=== PATIENT | male | born 1960 | race American Indian/Alaskan Native ===

== ENCOUNTER 2017-01-02 05:45 | Emergency (ER) | payer MEDICAID ==
[2017-01-02 06:17] LABS: Basophils % (Auto) 0.4 % (0.0-1.8); Eosinophils % (Auto) 1.2 % (0.0-4.3); Hematocrit 48.7 % (35.5-45.6); Hemoglobin 15.7 gm/dl (11.8-15.2); Mean Corpuscular HGB Conc 32 % (32-34); Mean Corpuscular Hemoglobin 28 pg (28-32); Mean Corpuscular Volume 85 fl (84-94); Platelet Count 282 K/mm3 (140-440); Red Blood Count 5.73 M/mm3 (3.65-5.03); Red Cell Distribution Width 13.9 % (13.2-15.2); White Blood Count 8.2 K/mm3 (4.5-11.0)
[2017-01-02 06:38] LABS: Alanine Aminotransferase 26 units/L (7-56); Albumin 4.4 g/dL (3.9-5); Alkaline Phosphatase 73 units/L (35-129); Anion Gap 17 mmol/L; BUN/Creatinine Ratio 13.33; Bilirubin,Total 0.9 mg/dL (0.1-1.2); Blood Urea Nitrogen 12 mg/dL (9-20); Calcium 9.3 mg/dL (8.4-10.2); Carbon Dioxide 28 mmol/L (22-30); Chloride 98.7 mmol/L (98-107); Glucose 134 mg/dL (75-100); Lipase 18 units/L (13-60); Potassium 4.2 mmol/L (3.6-5.0); Sodium 139 mmol/L (137-145); Total Protein 8.6 g/dL (6.3-8.2)
[2017-01-02 08:22] LABS: Mucus,Urine FEW /HPF; WBC,Urine < 1.0 /HPF (0.0-6.0)
[2017-01-02 08:26] LABS: Bilirubin,Urine NEG (Negative); Blood,Urine NEG (Negative); Ketones,Urine NEG (Negative); Leukocyte Esterase,Urine NEG (Negative); Nitrite,Urine NEG (Negative); Protein,Urine <15 mg/dL mg/dL (Negative); Urobilinogen,Urine < 2.0 mg/dL (<2.0)
--- NOTE | 2017-01-02 09:46 | Emergency Department Report ---
ED Abdominal Pain HPI - General Chief Complaint: Abdominal Pain Stated Complaint: STOMACH PAIN Time Seen by Provider: 01/02/17 09:42 Source: patient Mode of arrival: Ambulatory Limitations: No Limitations - History of Present Illness Initial Comments: Patient complains of a vague periumbilical and abdominal pain which she states he's been having for months if not years. He states that it is typically worse after eating but he does not vomit. Pain does not radiate. At this time he is not complaining of any pain. However, he would like to know what is causing this pain syndrome. He does have a history of schizophrenia and line with his Zyprexa. He denies any recent fever of or chills. It does not really appear that his pain is acutely exacerbated in any way. In fact, at this time he is asymptomatic. MD Complaint: abdominal pain -: month(s) Location: periumbilical, epigastric Radiation: none Migration to: no migration Severity: moderate Quality: cramping Consistency: intermittent Improves With: nothing Worsens With: nothing Associated Symptoms: denies other symptoms - Related Data Previous Rx's Medication Instructions Recorded Last Taken Type Cyclobenzaprine [Flexeril] 10 mg PO TID PRN #20 tablet 12/14/13 Unknown Rx Ibuprofen [Motrin] 800 mg PO TID PRN #20 tablet 12/14/13 Unknown Rx Albuterol Sulfate [Ventolin HFA] 2 puff IH Q4H PRN #1 hfa.aer.ad 09/27/14 Unknown Rx Azithromycin [Zithromax Z-PAGE] 250 mg PO DAILY #6 tablet 09/27/14 Unknown Rx Promethazine /Codeine 5 ml PO Q6H PRN #120 ml 09/27/14 Unknown Rx [Phenergan/Codeine 6.25-10 mg/5 ml] predniSONE [Deltasone] 20 mg PO TID #15 tab 09/27/14 Unknown Rx Olanzapine [ZyPREXA] 15 mg PO QDAY #60 tablet 11/07/15 Unknown Rx Lansoprazole [Prevacid] 15 mg PO BID #30 cap 01/02/17 Unknown Rx Allergies Allergy/AdvReac Type Severity Reaction Status Date / Time iv contrast Allergy Hives Uncoded 12/14/13 11:00 seafood Allergy Hives Uncoded 12/14/13 11:00 ED Review of Systems ROS: Stated complaint: STOMACH PAIN Other details as noted in HPI Constitutional: denies: chills, fever Eyes: denies: eye pain, eye discharge, vision change ENT: denies: ear pain, throat pain Respiratory: denies: cough, shortness of breath, wheezing Cardiovascular: denies: chest pain, palpitations Endocrine: no symptoms reported Gastrointestinal: abdominal pain. denies: nausea, diarrhea Genitourinary: denies: urgency, dysuria Musculoskeletal: denies: back pain, joint swelling, arthralgia Skin: denies: rash, lesions Neurological: denies: headache, weakness, paresthesias Psychiatric: denies: anxiety, depression Hematological/Lymphatic: denies: easy bleeding, easy bruising ED Past Medical Hx - Past Medical History Previous Medical History?: Yes Hx Hypertension: Yes Hx Asthma: Yes Additional medical history: heart murmur - Surgical History Past Surgical History?: Yes Additional Surgical History: arm - Social History Smoking Status: Never Smoker Substance Use Type: None - Medications Home Medications: Home Medications Medication Instructions Recorded Confirmed Last Taken Type Cyclobenzaprine [Flexeril] 10 mg PO TID PRN #20 tablet 12/14/13 Unknown Rx Ibuprofen [Motrin] 800 mg PO TID PRN #20 tablet 12/14/13 Unknown Rx Albuterol Sulfate [Ventolin HFA] 2 puff IH Q4H PRN #1 hfa.aer.ad 09/27/14 Unknown Rx Azithromycin [Zithromax Z-PAGE] 250 mg PO DAILY #6 tablet 09/27/14 Unknown Rx Promethazine /Codeine 5 ml PO Q6H PRN #120 ml 09/27/14 Unknown Rx [Phenergan/Codeine 6.25-10 mg/5 ml] predniSONE [Deltasone] 20 mg PO TID #15 tab 09/27/14 Unknown Rx Olanzapine [ZyPREXA] 15 mg PO QDAY #60 tablet 11/07/15 Unknown Rx Lansoprazole [Prevacid] 15 mg PO BID #30 cap 01/02/17 Unknown Rx ED Physical Exam - General Limitations: No Limitations General appearance: alert, in no apparent distress - Head Head exam: Present: atraumatic, normocephalic - Eye Eye exam: Present: normal appearance. Absent: scleral icterus - ENT ENT exam: Present: normal exam, mucous membranes moist - Neck Neck exam: Present: normal inspection - Respiratory Respiratory exam: Present: normal lung sounds bilaterally. Absent: respiratory distress - Cardiovascular Cardiovascular Exam: Present: regular rate, normal rhythm. Absent: systolic murmur, diastolic murmur, rubs, gallop - GI/Abdominal GI/Abdominal exam: Present: soft, normal bowel sounds. Absent: distended, tenderness, guarding, rebound, rigid, organomegaly, mass, bruit, pulsatile mass - Rectal Rectal exam: Present: deferred - Extremities Exam Extremities exam: Present: normal inspection - Back Exam Back exam: Present: normal inspection - Neurological Exam Neurological exam: Present: alert, oriented X3, CN II-XII intact. Absent: motor sensory deficit - Psychiatric Psychiatric exam: Present: normal affect, normal mood - Skin Skin exam: Present: warm, dry, intact, normal color. Absent: rash ED Course Vital Signs 01/02/17 01/02/17 01/02/17 05:55 09:50 10:48 Temperature 97.4 F L Pulse Rate 90 95 H Respiratory 18 20 16 Rate Blood Pressure 153/105 Blood Pressure 146/94 [Right] O2 Sat by Pulse 90 99 Oximetry - Reevaluation(s) Reevaluation #1: CT the abdomen and pelvis was performed and was negative. The patient remained calm while in the emergency department. He was reassured. He will be referred for follow-up to GI. 01/02/17 11:59 ED Medical Decision Making - Lab Data Result diagrams: 01/02/17 06:07 01/02/17 06:07 Laboratory Results - last 24 hr 01/02/17 01/02/17 01/02/17 06:07 06:07 07:42 WBC 8.2 RBC 5.73 H Hgb 15.7 H Hct 48.7 H MCV 85 MCH 28 MCHC 32 RDW 13.9 Plt Count 282 Lymph % (Auto) 15.8 [place] % (Auto) 9.1 H Eos % (Auto) 1.2 Baso % (Auto) 0.4 Lymph # 1.3 [place] # 0.7 Eos # 0.1 Baso # 0.0 Seg Neutrophils % 73.5 H Seg Neutrophils # 6.0 Sodium 139 Potassium 4.2 Chloride 98.7 Carbon Dioxide 28 Anion Gap 17 BUN 12 Creatinine 0.9 Estimated GFR > 60 BUN/Creatinine Ratio 13.33 Glucose 134 H Calcium 9.3 Total Bilirubin 0.9 AST 36 ALT 26 Alkaline Phosphatase 73 Total Protein 8.6 H Albumin 4.4 Albumin/Globulin Ratio 1.0 Lipase 18 Urine Color Yellow Urine Turbidity Clear Urine pH 7.0 Ur Specific [place] 1.024 Urine Protein <15 mg/dl Urine Glucose (UA) Neg Urine Ketones Neg Urine Blood Neg Urine Nitrite Neg Ur Reducing Substances Not Reportable Urine Bilirubin Neg Urine Ictotest Not Reportable Urine Urobilinogen < 2.0 Ur Leukocyte Esterase Neg Urine WBC (Auto) < 1.0 Urine RBC (Auto) 3.0 Urine Mucus Few Critical care attestation.: If time is entered above; I have spent that time in minutes in the direct care of this critically ill patient, excluding procedure time. ED Disposition Clinical Impression: Abdominal pain Qualifiers: Abdominal location: periumbilical Qualified Code(s): R10.33 - Periumbilical pain Disposition: DISCHARGED TO HOME OR SELFCARE Is pt being admited?: No Does the pt Need Aspirin: No Condition: Stable Instructions: Abdominal Pain (ED) Additional Instructions: Return any acute change or problem. Further evaluation by a dust collector attendant is recommended. Rx as directed. Prescriptions: Lansoprazole [Prevacid] 15 mg PO BID #30 cap Referrals: JESSIKA PRINGLE MD [Primary Care Provider] - 3-5 Days [facility] [Provider Group] - 3-5 Days Time of Disposition: 12:00
[2017-01-02] MEDS ORDERED: ULTRAM PO ONE (09:50)
--- NOTE | 2017-01-02 10:40 | Cat Scan Report ---
CT OF THE ABDOMEN AND PELVIS WITHOUT CONTRAST HISTORY: Abdominal pain. TECHNIQUE: Helical CT without contrast. Sagittal and coronal reformatted images. FINDINGS: Within the limits of a noncontrast exam, the abdominal and pelvic viscera are within normal limits. The liver, biliary system, pancreas, spleen, kidneys, adrenal glands and bladder are unremarkable. The bowel loops are normal caliber and wall thickness. The appendix is not confidently identified, correlate with surgical history. The aorta is normal caliber. No ascites, bulky adenopathy or inflammatory changes. The lung bases are clear. Normal heart size. No suspicious bony lesion. IMPRESSION: Unremarkable noncontrast CT of the abdomen and pelvis. No acute process is noted.
[2017-01-02 10:49] VITALS: BP 146/94
== END 2017-01-02 12:35 | disposition home or self-care (01) ==
LOC: ED 05:45
DX: R10.33 Periumbilical pain (principal); I10 Essential (primary) hypertension; J45.909 Unspecified asthma, uncomplicated
CPT/HCPCS: 36415; 74176; 80053; 81001; 83690; 85025; 99284

== ENCOUNTER 2017-05-24 08:03 | Emergency (ER) | payer OTHER, MEDICAID ==
[2017-05-24] MEDS ORDERED: MOTRIN PO ONE (09:49)
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
--- NOTE | 2017-05-24 10:43 | XRay Report ---
RIGHT SHOULDER, 3 views: History: Right shoulder pain. Routine views demonstrate normal bony and soft tissue structures with normal joint alignment of the shoulder. IMPRESSION: No evidence for acute injury.
--- NOTE | 2017-05-24 10:44 | XRay Report ---
THORACOLUMBAR SPINE, 2 VIEWS History: Back pain. Findings: There is no evidence for fracture in the visualized thoracolumbar spine. There are moderate degenerative changes throughout the lumbar region. 4 mm anterolisthesis of L4 with respect to L5 is identified which appears degenerative in nature. Impression: Degenerative findings as described. No evidence for acute injury on x-ray.
[2017-05-24 11:22] VITALS: BP 130/85
== END 2017-05-24 11:59 | disposition home or self-care (01) ==
LOC: ED 08:03
DX: M54.2 Cervicalgia (principal); M54.5 Low back pain; M79.1 Myalgia; I10 Essential (primary) hypertension; J45.909 Unspecified asthma, uncomplicated; Z87.891 Personal history of nicotine dependence; Z91.013 Allergy to seafood; Z91.041 Radiographic dye allergy status; V43.52XA Car driver injured in collision with other type car in traffic accident, initial encounter; Y93.89 Activity, other specified; Y99.8 Other external cause status; Y92.89 Other specified places as the place of occurrence of the external cause
CPT/HCPCS: 72040; 72080; 99283

== ENCOUNTER 2017-10-20 10:40 | Emergency (ER) | payer MEDICAID ==
--- NOTE | 2017-10-20 11:37 | Emergency Department Report ---
HPI - General Chief Complaint: Upper Respiratory Infection Time Seen by Provider: 10/20/17 11:25 - HPI HPI: Patient reports that he feels like he has flu symptoms and is single and on for 2 weeks. Patient said it started with a runny nose and congestion with sore throat that started 2 days ago 7 out of 10 and feels burning. Patient reports that he is having coughing and it is worse at night. [id number] cough and cold medication taken without any relief patient said he took Advil for sore throat which helps a little but it comes back. Denies any chest pain or shortness of breath. He said he has a productive cough with greenish sputum. Denies any nausea or vomiting. Denies any fever or chills. Denies any headache. Patient with medical history of arthritis, asthma for which he said he takes albuterol. Denies any wheezing. He said his doctor told him that he is borderline diabetes but he is not on medication. He also has hypertension and Patient is asymptomatic with elevated blood pressure.He said he has multiple medication but he has not taken medication. Patient blood pressure today is 150/108. He hasn't taken his blood pressure medication and he is finding ever reason why he doesn't take his blood pressure medication. He has a primary care physician who is Dr. Car. Pain is better with Advil and worse with eating and swallowing. He said that that's normal blood pressure for him at 150/108. ED Past Medical Hx - Past Medical History Previous Medical History?: Yes Hx Hypertension: Yes (meds but does not tahe meds) Hx Diabetes: Yes ("BOARDERLINE " - NO MEDS) Hx Arthritis: Yes Hx Asthma: Yes (Albuterol) Hx HIV: No Additional medical history: heart murmur - Surgical History Past Surgical History?: Yes Additional Surgical History: arm - Family History Family history: diabetes, hypertension - Social History Smoking Status: Never Smoker Substance Use Type: None - Medications Home Medications: Home Medications Medication Instructions Recorded Confirmed Last Taken Type Amoxicillin/Potassium Clav 1 each PO QAM 10 Days #20 tablet 10/20/17 Unknown Rx [Augmentin 875-125 Tablet] Cetirizine HCl [ZyrTEC] 10 mg PO QAM 14 Days #14 capsule 10/20/17 Unknown Rx Codeine Phosphate/Guaifenesin 10 ml PO QHS PRN 7 Days #70 liquid 10/20/17 Unknown Rx [Guaifenesin-Codeine Syrup] Fluticasone [Flonase] 1 spray NS QDAY 14 Days #1 bottle 10/20/17 Unknown Rx ED Review of Systems ROS: Stated complaint: FLU SX Other details as noted in HPI Comment: All other systems reviewed and negative Constitutional: no symptoms reported Eyes: denies: eye discharge, vision change ENT: throat pain, congestion. denies: ear pain Respiratory: cough. denies: shortness of breath, SOB with exertion, SOB at rest , stridor, wheezing Cardiovascular: denies: chest pain, palpitations, dyspnea on exertion, edema, syncope Gastrointestinal: denies: abdominal pain, nausea, vomiting, diarrhea, constipation Musculoskeletal: denies: back pain, joint swelling, arthralgia, myalgia Skin: denies: rash Neurological: denies: headache, weakness, numbness, paresthesias, confusion, abnormal gait, vertigo Physical Exam - Physical Exam Vital Signs: Vital Signs 10/20/17 10:45 Temperature 97.9 F Pulse Rate 85 Respiratory 18 Rate Blood Pressure 150/108 O2 Sat by Pulse 99 Oximetry Vital Signs 10/20/17 10/20/17 10/20/17 10:45 12:01 12:32 Temperature 97.9 F Pulse Rate 85 82 Respiratory 18 18 16 Rate Blood Pressure 150/108 Blood Pressure 148/98 [Left] O2 Sat by Pulse 99 98 Oximetry General: All systems are negative unless stated in HPI above Physical Exam: Head: Normocephalic, atraumatic, no abrasion, no bruising and no contusion. Eyes: Biateral pupils equal and reactive to light, bilateral EOM intact.. Bilateral conjunctival and sclera without injection, normal accommodation. No nystagmus Neck: Supple, No Cervical adenopathy, full range of motion and no C-spine tenderness. Tender to palpate to left neck laterally/posteriorly. No swelling or tracheal deviation normal reflexes Mouth: Moist, no pharyngeal exudate or erythema. No peritonsillar abscess. Tongue is normal, uvula is midline and oral airways patent. Patient with a hoarse voice. Ears: Bilateral TMs congested without erythema. Bilateral nasal mucosa congested with erythema and clear drainage. Frontal and maxillary sinuses tender to palpate. Cardiovascular: S1, S2. Regular rate and rhythm. No murmur. Capillary refill is less then 3 seconds. Lungs: Clear to auscultate bilaterally. No rhonchi, wheezes or rales. No chest wall tenderness. No chest contusion. No bruising to chest. Dry cough. MSK: Strength 5/5 in all extremities. No joint deformity or crepitus. Normal inspection. Full range of motion to all extremities. No laceration, abrasion or ecchymotic area noted. Patient able to fully flex and extend bilateral knees without any difficulties. Bilateral knees nontender to palpate. Abdomen: Non-tender to palpate in all quadrants, no guarding or rebound tenderness, positive bowel sounds in all quadrants. No CVA tenderness. No hernia, bruit or mass. No rigidity or distention. Extremities: No clubbing, cyanosis or edema. +2 pulses. No neurovascular compromise Skin: Clean, dry and intact. No rash or lesions. Neurological: GCS at 15, Pt is alert and oriented 3 .speech is clear . No facial drooping. Bilateral hand screw eye assembler strong and equal. Normal gait. Negative Romberg and no pronator drift. Normal Reflexes. No motor or sensory deficit. Back: No vertebral tenderness, no paraspinal tenderness. Normal inspection Psych: Normal mood and behavior ED Course Vital Signs 10/20/17 10:45 Temperature 97.9 F Pulse Rate 85 Respiratory 18 Rate Blood Pressure 150/108 O2 Sat by Pulse 99 Oximetry Vital Signs 10/20/17 10/20/17 10/20/17 10:45 12:01 12:32 Temperature 97.9 F Pulse Rate 85 82 Respiratory 18 18 16 Rate Blood Pressure 150/108 Blood Pressure 148/98 [Left] O2 Sat by Pulse 99 98 Oximetry - Reevaluation(s) Reevaluation #1: 10/20/17 12:06 Patient given clonidine 0.1 mg by mouth, Motrin 600 mg by mouth and Deltasone 60 mg by mouth in the emergency room to cover acute bacterial rhinosinusitis, elevated blood pressure and sore throat. Reevaluation #2: 10/20/17 12:33 Blood pressure is down to 148/98. ED Medical Decision Making - Medical Decision Making ED course: Patient here reports cough then, nasal congestion and sore throat with symptoms ongoing for 2 weeks. Physical findings for acute bacterial rhinosinusitis, cough and pharyngitis. She also found to have elevated blood pressure with a history of high blood pressure and I discussed with him that he needs to take his blood pressure medication which he said he does have and cannot remember name but he has medication at home. He said his doctor is Dr. Car. Patient states that he doesn't feel like he needs to take his blood pressure medication because his blood pressure is elevated because he sick and said that his blood pressure stays at 150/108 and that's normal for him. I discussed patient that elevated blood pressure at the level of these that at present could lead to stroke, heart attack, kidney failure which can lead to . He had no response. I discussed the patient that he needs to call and schedule an appointment with his primary care physician to manage his medical problems. Vital signs are stable afebrile except his blood pressure is 150/80 and he was given clonidine 0.1 mg by mouth. He is also given Motrin 6 injured milligrams and Deltasone 60 mg when necessary emergency room without any adverse reaction. Patient discharged home with prescription for Augmentin, penicillin with codeine, Flonase and Zyrtec. Discussed with him that he needs to keep a lot of his blood pressure and follow up with his primary care physician for evaluation .I also discussed with him that it is very important that he takes is blood pressure medication. Prior to discharge patient blood pressure is 148/98. Patient discharged from emergency room in stable condition. Critical care attestation.: If time is entered above; I have spent that time in minutes in the direct care of this critically ill patient, excluding procedure time. ED Disposition Clinical Impression: Acute bacterial rhinosinusitis, Cough in adult patient, Noncompliance with medication regimen, Elevated blood pressure reading without diagnosis of hypertension Pharyngitis Qualifiers: Pharyngitis/tonsillitis etiology: unspecified etiology Qualified Code(s): J02.9 - Acute pharyngitis, unspecified Disposition: - TO HOME OR SELFCARE Is pt being admited?: No Does the pt Need Aspirin: No Condition: Stable Instructions: Acute Bacterial Rhinosinusitis (ED), Acute Cough (ED), Pharyngitis (ED), Chronic Hypertension (ED) Additional Instructions: Please increase her fluid intake Flush nostrils with saline nasal spray take antibiotic as prescribed F/U with primary care physician as instructed Please take your blood pressure and record in April on a daily basis and take to primary care physician with you Constant elevated blood pressure can cause stroke, heart attack, kidney failure and eventually lead to . Take Zyrtec and Flonase as instructed Please do not drive or operate heavy machinery while taking cough medicine at this medication causes drowsiness Gargle with warm salt water 3-4 times a day and this will help you throat Honey and lemon will also help to relieve sore throat and is good for inflammation. Prescriptions: Codeine Phosphate/Guaifenesin [Guaifenesin-Codeine Syrup] 10 ml PO QHS PRN 7 Days #70 liquid PRN Reason: Cough Amoxicillin/Potassium Clav [Augmentin 875-125 Tablet] 1 each PO QAM 10 Days #20 tablet Cetirizine HCl [ZyrTEC] 10 mg PO QAM 14 Days #14 capsule Fluticasone [Flonase] 1 spray NS QDAY 14 Days #1 bottle Referrals: PRIMARY CARE, [Primary Care Provider] - 3-5 Days Forms: Work/School Release Form(ED)
[2017-10-20] MEDS ORDERED: MOTRIN PO ONE (11:46)
[2017-10-20] MEDS ORDERED: DELTASONE PO ONE (11:46)
[2017-10-20] MEDS ORDERED: CATAPRES PO ONE (11:46)
[2017-10-20 12:33] VITALS: BP 148/98
== END 2017-10-20 12:40 | disposition home or self-care (01) ==
LOC: ED 10:40
DX: J01.90 Acute sinusitis, unspecified (principal); Z91.14 Patient's other noncompliance with medication regimen; J02.9 Acute pharyngitis, unspecified; R03.0 Elevated blood-pressure reading, without diagnosis of hypertension
CPT/HCPCS: 99282; J7512